=== PATIENT | male | born 1995 | race Caucasian/White ===

== ENCOUNTER 2019-02-26 14:36 | Day surgery (SDC) | payer BC ==
[~2019-02-26] VITALS: Ht 190.5 cm; Wt 97.1 kg
[2019-02-26 14:52] VITALS: Ht 190.5 cm; Wt 97.1 kg
[2019-02-26] MEDS ORDERED: LIDOCAINE 4% SOLUTION 50 ML BTL ONE (14:53)
[2019-02-26 15:10] VITALS: BP 139/86; PULSE 103; RESP 18
[2019-02-26] MEDS ORDERED: OMEP20CA16 PO (15:13)
[2019-02-26 15:52] VITALS: BP 128/68; PULSE 84; RESP 18
[2019-02-26] MEDS ORDERED: FENTAnyl 50 MCG/ML VIAL ONE (15:58)
[2019-02-26] MEDS ORDERED: MIDAZOLAM 1 MG/ML 2 ML INJ ONE ×2 (15:58)
== END 2019-02-26 16:14 | disposition home or self-care (01) ==
LOC: GIL 14:36
PROVIDERS: ATTEND Internal Medicine
DX: K44.9 Diaphragmatic hernia without obstruction or gangrene (principal); K21.0 Gastro-esophageal reflux disease with esophagitis
CPT/HCPCS: 43239; 88305; 88312; 88313; J2250; J3010; Z7610